=== PATIENT | female | born 1950 | race Caucasian/White ===

== ENCOUNTER → 2020-08-22 | Emergency (ER) | payer MEDICARE ==
[~2020-08-22] VITALS: Ht 162.6 cm; Wt 72.6 kg
[~2020-08-22] MED LIST: CYMBALTA60 MG PO; LAMOTRIGINE OD100 MG PO; NORCO 5-325 TA1 EACH PO; SYNTHROID75 MCG PO
--- OUTSIDE RECORDS SUMMARY | ~2020-08-22 | XMS | Encounter Summary ---
Demographics + + + | Address | [address] | | | [place] [address] | + + + | Home Phone | | + + + | Preferred Language | Unknown | + + + | Marital Status | Single | + + + | Pentecostal Affiliation | Unknown | + + + | Race | Unknown | + + + | Ethnic Group | Unknown | + + + Author + + + | Author | [facility] [place] | | | and [place] | + + + | Organization | [facility] | | | and [place] | + + + | Address | Unknown | + + + | Phone | Unavailable | + + + Support + + +---------+ + | Name | Relationship | Address | Phone | + + +---------+ + | Jie Babin | ECON | Unknown | | + + +---------+ + Care Team Providers + +------+ + | Care Biscuit Factory Worker Name | Role | Phone | + +------+ + PCP | Unavailable | + +------+ + Encounter Details +--------+ + + + + | Date | Type | Department | Care Team | Description | +--------+ + + + + | 01/29/ | Hospital | [facility] | | | | 1999 | Encounter | MED [facility] EM[facility] | | | | | | [place] [address] | | | | | | [place] | | | | | | [address] | | | | | | [phone] | | | +--------+ + + + + Social History + +-------+ +--------+------+ | Tobacco Use | Types | Packs/Day | Years | Date | | | | | Used | | + +-------+ +--------+------+ | Never Assessed | | | | | + +-------+ +--------+------+ + + + | Sex Assigned at | Date Recorded | | | | + + + | Not on file | | + + + documented as of this encounter Plan of Treatment Not on filedocumented as of this encounter Visit Diagnoses Not on filedocumented in this encounter"
--- OUTSIDE RECORDS SUMMARY | ~2020-08-22 | XMS | Clinical Summary ---
Demographics + + + | Address | [address] | | | [place] [address] | + + + | Home Phone | | + + + | Preferred Language | Unknown | + + + | Marital Status | Single | + + + | Orthodox Affiliation | Unknown | + + + | Race | Unknown | + + + | Ethnic Group | Unknown | + + + Author + + + | Author | [facility] [place] | | | and [place] | + + + | Organization | [facility] [place] | | | and [place] | [...] Team Providers + +------+ + | Care Film Historian Name | Role | Phone | + +------+ + | Michael Bronson | PCP | | + +------+ + Allergies Not on File Medications Not on file Active Problems Not on file Social History + +-------+ +--------+------+ | Tobacco [...] on file | | + + + Last Filed Vital Signs Not on file Plan of Treatment + + +-------+ + | Health Maintenance | Due Date | Last | Comments | | | | Done | | + + +-------+ + | Vaccine: | | | | | Dtap/Tdap/Td (1 - | 8 | | | | Tdap) | | | | + + +-------+ + | Vaccine: Zoster (1 | | | | | of 2) | 9 | | | + + +-------+ + | Breast Cancer | | | | | Screening | 4 | | | + + +-------+ + | Vaccine: | | | | | Pneumococcal 65+ (1 | 4 | | | | of 1 - PPSV23) | | | | + + +-------+ + | Vaccine: Influenza | | | | | (#1) | 0 | | | + + +-------+ + Results Not on filefrom Last 3 Months Insurance + +--------+ +--------+ +---------+--------+ | Payer | Benefi | Subscriber | Effect | Phone | Address | Type | | | t Plan | ID | shayna | | | | | | / | | Dates | | | | | | Group | | | | | | + +--------+ +--------+ +---------+--------+ | MEDICARE | MEDICA | [id number] | 03/18/20 | [phone] | | Medica | | | RE | | 14-Pre | 5 | | re | | | PART A | | sent | | | | | | AND B | | | | | | + +--------+ +--------+ +---------+--------+ + +--------+ +--------+ + + | Guarantor Name | Accoun | Relation to | Date | Phone | Billing Address | | | t Type | Patient | of | | | | | | | | | | + +--------+ +--------+ + + | Landy Pina | Person | Self | [birth year] | [address] | | | al/Fam | | 1950 | [phone] | [place] [address] | | | yamileth | | | 1 (Home) | | + +--------+ +--------+ + +"
--- OUTSIDE RECORDS SUMMARY | ~2020-08-22 | XMS | Encounter Summary ---
Demographics + + + | Address | [address] | | | [place] [address] | + + + | Home Phone | | + + + | Preferred Language | Unknown | + + + | Marital Status | Single | + + + | Voodoo Affiliation | Unknown | + + + | Race | Unknown | + + + | Ethnic Group | Unknown | + + + Author + + + | Author | [facility] [place] | | | and [place] | + + + | Organization | [facility] [place] | | | and [place] | [...] Team Providers + +------+ + | Care Work Manager Name | Role | Phone | + +------+ + PCP | Unavailable | + +------+ + Encounter Details +--------+ + + + + | Date | Type | Department | Care Team | Description | +--------+ + + + + | 01/28/ | [facility] | [facility] | | | | 1999 | Encounter | MED CTR GENERIC OP | | | | | | CONV DEPT [address] | | | | | | [address], | | | | | | [place] [address] | | | | | | [phone] | | | +--------+ + + + [...]
== END ==
LOC: ED 12:35
DX: S32.019A Unspecified fracture of first lumbar vertebra, initial encounter for closed fracture (principal); W01.10XA Fall on same level from slipping, tripping and stumbling with subsequent striking against unspecified object, initial encounter; F32.9 Major depressive disorder, single episode, unspecified; E03.9 Hypothyroidism, unspecified; Z87.891 Personal history of nicotine dependence; Z79.899 Other long term (current) drug therapy
CPT/HCPCS: 70450; 71045; 72070; 72080; 72128; 72131; 99284-25

== ENCOUNTER 2024-09-23 17:16 | Emergency (ER) | payer MEDICARE, OTHER ==
[~2024-09-23] VITALS: Ht 162.6 cm; Wt 76.8 kg
[~2024-09-23 17:16] MED LIST changes: +AUGMENTIN 500-1 EACH PO; +OXYCODONE HCL5 MG PO; +ZITHROMAX TRI-500 MG PO
[2024-09-23] MEDS ORDERED: QUETIAPINE FUM200 M1 PO (17:24)
[2024-09-23] MEDS ORDERED: CALQUENCE100 M1 PO (17:25)
[2024-09-23] MEDS ORDERED: SODIUM CHLORIDE 0.9% 500 ML IV ONE (18:15)
[2024-09-23 18:25] LABS: HEMATOCRIT 31.3 % (35.0-50.0); HEMOGLOBIN 10.3 g/dL (12.0-18.0); MCH 25.4 (27-36); MCHC 32.9 g/dl (30-36); MCV 77.4 fl (81-99); PLATELET COUNT 155 K/uL (140-440); RBC 4.05 M/ul (4.3-5.7); RDW 18.1 (10.5-15.0)
[2024-09-23 18:37] LABS: ANION GAP 11.4 (7-21); BUN/CREATININE RATIO 15.09 (6.0-28.6); CALCIUM 8.6 mg/dL (8.5-10.1); CREATININE, SERUM 1.59 mg/dL (0.55-1.02); POTASSIUM 4.4 mmol/L (3.5-5.1)
[2024-09-23 18:55] LABS: LYMPHOCYTES, MANUAL DIFF 86; NEUTROPHILS, MANUAL DIFF 14
[2024-09-23 19:15] VITALS: BP 116/63
--- NOTE | 2024-09-24 19:17 | EKG ---
[facility] [address] [place], [place] [address] Signed Normal sinus rhythm with sinus arrhythmia Normal ECG When compared with ECG of 23-APR-2024 09:50, No significant change was found Confirmed by Hailey Duarte MD ([id number]) on 09/24/2024 7:17:32 PM Electronically Signed By: HAILEY DUARTE MD 09/24/241916 PATIENT NAME: NESTOR BROUSSARD Electrocardiogram DATE OF : 48 PHYSICIAN: HAILEY DUARTE MD REPORT #: [id number] REPORT IS CONFIDENTIAL AND NOT TO BE RELEASED WITHOUT AUTHORIZATION
== END 2024-09-23 19:34 | disposition home or self-care (01) ==
LOC: ED 17:16
PROVIDERS: Emergency Medicine
DX: S00.81XA Abrasion of other part of head, initial encounter (principal); S00.31XA Abrasion of nose, initial encounter; W19.XXXA Unspecified fall, initial encounter; R55 Syncope and collapse; E03.9 Hypothyroidism, unspecified; D72.829 Elevated white blood cell count, unspecified; Z79.890 Hormone replacement therapy; Z79.899 Other long term (current) drug therapy
CPT/HCPCS: 36415; 70450; 80048; 85025; 93005; 93010; 96360; 99284-25; J7040

== ENCOUNTER 2024-11-13 09:34 | Emergency (ER) | payer MEDICARE, OTHER ==
[~2024-11-13] VITALS: Ht 162.6 cm; Wt 79.4 kg
[~2024-11-13 09:34] MED LIST changes: +CALQUENCE100 M1 PO; +QUETIAPINE FUM200 M1 PO
[2024-11-13] MEDS ORDERED: GEMTESA75 MG PO (11:06)
[2024-11-13 12:34] LABS: HEMATOCRIT 31.9 % (35.0-50.0); MCH 24.9 (27-36); MCHC 31.5 g/dl (30-36); PLATELET COUNT 175 K/uL (140-440); RBC 4.03 M/ul (4.3-5.7); RDW 18.5 (10.5-15.0)
[2024-11-13 12:47] LABS: INR 0.98 (0.80-1.30); PROTIME 12.6 Sec (11.2-14.2)
[2024-11-13 12:50] LABS: PARTIAL THROMBOPLASTIN TIME 26.8 Sec (22.9-41.3)
[2024-11-13 12:51] LABS: EOSINOPHILS, MANUAL DIFF 1; LYMPHOCYTES, MANUAL DIFF 80; MONOCYTES, MANUAL DIFF 1; NEUTROPHILS, MANUAL DIFF 18
[2024-11-13 12:52] LABS: ALBUMIN 3.4 g/dL (3.4-5.0); ALBUMIN/GLOBULIN RATIO 1.17 (1.1-2.4); ANION GAP 15.6 (7-21); BILIRUBIN, TOTAL 0.4 ng/dL (0.2-1.0); BUN/CREATININE RATIO 14.7 (6.0-28.6); CALCIUM 8.8 mg/dL (8.5-10.1); CREATININE, SERUM 1.36 mg/dL (0.55-1.02); POTASSIUM 4.6 mmol/L (3.5-5.1); PROTEIN, TOTAL 6.3 g/dL (6.4-8.2)
[2024-11-13 13:48] VITALS: BP 124/60
== END 2024-11-13 13:40 | disposition home or self-care (01) ==
LOC: ED 09:34
PROVIDERS: Emergency Medicine
DX: S70.12XA Contusion of left thigh, initial encounter (principal); X58.XXXA Exposure to other specified factors, initial encounter; F32.A Depression, unspecified; Z79.899 Other long term (current) drug therapy; Z87.891 Personal history of nicotine dependence
CPT/HCPCS: 36415; 80053; 85025; 85610; 85730; 99283

== ENCOUNTER 2024-12-07 09:23 | Emergency (ER) | payer MEDICARE, OTHER ==
[~2024-12-07] VITALS: Ht 162.6 cm; Wt 80.7 kg
[~2024-12-07 09:23] MED LIST changes: +GEMTESA75 MG PO
--- OUTSIDE RECORDS SUMMARY | 2024-12-07 09:30 | XMS ---
PreManage Notification: NESTOR BROUSSARD Security Portable Sawyer Events No recent Security Events currently on file CRITERIA MET - [facility] - 2 Visits in 30 Days CARE PROVIDERS [facility] Current PHONE: Unknown [facility] has no Care Guidelines for this patient. EDolores VISIT COUNT (12 MO.) 5 [facility] TOTAL 5 NOTE: Visits indicate total known visits. ED/UCC VISIT TRACKING (12 MO.) 12/07/2024 09:23 [facility] TYPE: Emergency COMPLAINT: - FALL 11/13/2024 09:35 [facility] TYPE: Emergency COMPLAINT: - LT LEG INJURY DIAGNOSES: - Contusion of left thigh, initial encounter - Depression, unspecified - Exposure to other specified factors, initial encounter - Other termite technician (current) drug therapy - Personal history of nicotine dependence 09/23/2024 17:17 [facility] TYPE: Emergency COMPLAINT: - FALL DIAGNOSES: - Abrasion of nose, initial encounter - Abrasion of other part of head, initial encounter - Elevated white blood cell count, unspecified - Headache, unspecified - Hormone replacement therapy - Hypothyroidism, unspecified - Other termite technician (current) drug therapy - Syncope and collapse - Unspecified fall, initial encounter 02/28/2024 07:33 [facility] TYPE: Emergency COMPLAINT: - FALL, R ARM/HEAD INJURY DIAGNOSES: - Depression, unspecified - Fall on same level from slipping, tripping and stumbling without subsequent striking against object, initial encounter - Hormone replacement therapy - Hypothyroidism, unspecified - Other intraarticular fracture of lower end of right radius, initial encounter for closed fracture - Other termite technician (current) drug therapy - Pain in right forearm - Personal history of nicotine dependence 01/23/2024 12:32 [facility] TYPE: Emergency COMPLAINT: - COLD/FLU SYMPTOMS, COUGH, FEVER DIAGNOSES: - Cough, unspecified - Hypothyroidism, unspecified - Influenza due to other identified influenza virus with other respiratory manifestations - Other fci (current) drug therapy - Personal history of nicotine dependence - Pneumonia, unspecified organism INPATIENT VISIT TRACKING (12 MO.) No inpatient visits to display in this time frame [email or web address]
[2024-12-07] MEDS ORDERED: TOLTERODINE TART4 MG PO (09:36)
[2024-12-07] MEDS ORDERED: METOPROLOL SUCC25 MG PO (09:37)
[2024-12-07] MEDS ORDERED: CLONAZEPAM0.5 MG PO (09:37)
[2024-12-07] MEDS ORDERED: HYDROCODONE/ACETA 5/325 TAB PO ONE (10:00)
[2024-12-07] MEDS ORDERED: HYDROCODON-ACE1 EA10 PO (10:56)
[2024-12-07 11:06] VITALS: BP 128/68
== END 2024-12-07 11:04 | disposition home or self-care (01) ==
LOC: ED 09:23
DX: S20.219A Contusion of unspecified front wall of thorax, initial encounter (principal); E03.9 Hypothyroidism, unspecified; W01.0XXA Fall on same level from slipping, tripping and stumbling without subsequent striking against object, initial encounter; Z79.899 Other long term (current) drug therapy; Z87.891 Personal history of nicotine dependence
CPT/HCPCS: 71046; 99283-25

== ENCOUNTER 2025-01-14 09:59 | Emergency (ER) | payer MEDICARE, OTHER ==
[~2025-01-14] VITALS: Ht 162.6 cm; Wt 80.7 kg
[~2025-01-14 09:59] MED LIST changes: +CLONAZEPAM0.5 MG PO; +HYDROCODON-ACE1 EA10 PO; +METOPROLOL SUCC25 MG PO; +TOLTERODINE TART4 MG PO
[2025-01-14] MEDS ORDERED: OMEPRAZOLE40 MG PO (10:16)
[2025-01-14] MEDS ORDERED: HYDROCODON-ACE1 EA10 PO (11:56)
[2025-01-14 12:15] VITALS: BP 109/52
== END 2025-01-14 12:15 | disposition home or self-care (01) ==
LOC: ED 09:59
DX: S32.592A Other specified fracture of left pubis, initial encounter for closed fracture (principal); S22.20XA Unspecified fracture of sternum, initial encounter for closed fracture; E03.9 Hypothyroidism, unspecified; Z87.891 Personal history of nicotine dependence; Z79.890 Hormone replacement therapy; Z79.899 Other long term (current) drug therapy; W18.30XA Fall on same level, unspecified, initial encounter
CPT/HCPCS: 71046; 73502; 99284-25

== ENCOUNTER 2025-04-27 09:01 | Emergency (ER) | payer MEDICARE, OTHER ==
[~2025-04-27] VITALS: Ht 162.6 cm; Wt 82.0 kg
[~2025-04-27 09:01] MED LIST changes: +OMEPRAZOLE40 MG PO
[2025-04-27 10:05] LABS: HEMATOCRIT 32.8 % (34.1-44.9); MCH 24.6 PG (25.6-32.2); MCHC 30.5 g/dL (32.2-35.5); MCV 80.6 fL (79.4-94.8); PLATELET COUNT 209 K/uL (182-369); RBC 4.07 M/uL (3.93-5.22)
[2025-04-27 10:21] LABS: ALBUMIN 3.5 g/dL (3.4-5.0); ALBUMIN/GLOBULIN RATIO 1.25 (1.1-2.4); ANION GAP 10.5 (7-21); BILIRUBIN, TOTAL 0.3 mg/dL (0.2-1.0); BUN/CREATININE RATIO 13.53 (6.0-28.6); CALCIUM 9.1 mg/dL (8.5-10.1); CREATININE, SERUM 1.33 mg/dL (0.55-1.02); POTASSIUM 4.5 mmol/L (3.5-5.1); PROTEIN, TOTAL 6.3 g/dL (6.4-8.2)
[2025-04-27 10:26] LABS: EOSINOPHILS, MANUAL DIFF 9; LYMPHOCYTES, MANUAL DIFF 68; MONOCYTES, MANUAL DIFF 5; NEUTROPHILS, MANUAL DIFF 18
[2025-04-27 11:09] LABS: ERYTHROCYTE SEDIMENTATION RATE 8
[2025-04-27] MEDS ORDERED: HYDROCODONE/APAP 10/325 1 TAB PO ONE (11:15)
[2025-04-27] MEDS ORDERED: BACTRIM DS TAB1 EACH PO (11:49)
[2025-04-27] MEDS ORDERED: CEPHALEXIN500 M1 PO (11:49)
[2025-04-27 12:05] VITALS: BP 122/79
== END 2025-04-27 12:06 | disposition home or self-care (01) ==
LOC: ED 09:01
PROVIDERS: Emergency Medicine
DX: L03.113 Cellulitis of right upper limb (principal); Z87.891 Personal history of nicotine dependence; Z79.899 Other long term (current) drug therapy
CPT/HCPCS: 36415; 80053; 85025; 85651; 86140; 99284-25; A9270; Q9967

== ENCOUNTER 2025-07-07 05:54 | Day surgery (SDC) | payer MEDICARE, OTHER ==
[~2025-07-07] VITALS: Ht 162.6 cm; Wt 79.0 kg
[~2025-07-07 05:54] MED LIST changes: +BACTRIM DS TAB1 EACH PO; +CEPHALEXIN500 M1 PO; +DRIZALMA SPRINK60 MG PO; +IRON325 M1 PO; +LACTATED RINGER'S 1,000 ML IV SCH
[2025-07-07 06:11] VITALS: BP 108/54
[2025-07-07] MEDS ORDERED: IBLOOD GLUCOSE TEST STRIP 1 EA TEST VI PRN (07:00)
[2025-07-07] MEDS ORDERED: LIDOCAINE HCL 1% 5 ML SDV INJ ONE (07:00)
[2025-07-07] MEDS ORDERED: LIDOCAINE HCL 2% 5 ML SDV ONE (07:14)
--- NOTE | 2025-07-07 07:25 | NUR ---
VISITED DURING SPIRITUAL CARE ROUNDS. PT IN OVERALL GOOD SPIRITS, SUPPORTED BY RUG BACKING STENCILER IN ROOM, NO IMMEDIATE NEEDS. LENDING CONSULTANT PROVIDED SUPPORTIVE PRESENCE, HOSPITALITY, PRAYER, FACILITATED INTERACTION WITH THERAPY ANIMAL. PT AND RUG BACKING STENCILER EXPRESSED GRATITUDE.
--- NOTE | 2025-07-07 08:08 | NUR ---
07/07/25 0808 Faviola Rivas 0800- PT PRESENTS TO PACU, LEFT LATERAL POSITION, NON REACTIVE TO STIMULUS. BREATHING EVEN AND NON LABORED ON ROOM AIR, LR INFUSING TO RH IV. ABD SOFT, NON DISTENDED. ALL MONITORS IN PLACE.
[2025-07-07 09:15] VITALS: BP 113/60
--- NOTE | 2025-07-12 06:05 | PATH ---
[facility] [address] [place], [place] [address] Signed SPECIMEN(S): A ANTRUM BIOPSY SPECIMEN SOURCE: A. ANTRUM BIOPSY CLINICAL HISTORY: Anemia small hiatal hernia/incomplete colon Prep FINAL PATHOLOGIC DIAGNOSIS: A. Antrum, biopsy: - Mild chronic inactive gastritis. - Negative for intestinal metaplasia and dysplasia. - Negative for Helicobacter pylori organisms on routine stain. DDF MICROSCOPIC EXAMINATION: Histologic sections of all submitted blocks are examined by light microscopy. These findings, together with the gross examination, support the pathologic diagnosis. GROSS DESCRIPTION: The specimen, labeled and designated "Silvana, Kobe, 1." and designated on the requisition "antrum/pylorus biopsy," is received in formalin and consists of two bello soft tissue fragments that measure 0.3 and 0.4 cm in greatest dimension. The specimen is entirely submitted in (A1). FB (under the direct supervision of a pathologist) The Gross Description was prepared using a voice recognition system. The report was reviewed for accuracy; however, sound-alike word errors, addition and/or deletions may occur. If there is any question about this report, please contact Client Services. ADDITIONAL NOTES: Immunohistochemical and/or in situ hybridization studies if performed in this case included appropriate positive controls that reacted as expected. This test was developed and its performance characteristics determined by [facility]. It has not been cleared or approved by the U.S. Food and Drug Administration. The FDA has determined that such clearance or approval is not necessary. This test is used for clinical purposes. It should not be regarded as investigational or for research. [facility] is certified under the PATIENT NAME: NESTOR BROUSSARD PATHOLOGY DATE OF : 48 REPORT #: [id number] PHYSICIAN: GEORGE PATHOLOGY PCP: ALFIE DE DIOS MD REPORT IS CONFIDENTIAL AND NOT TO BE RELEASED WITHOUT AUTHORIZATION [facility] [address] [place] [address] Signed Clinical Laboratory Improvement Amendments of 1988 (CLIA) as qualified to perform high complexity clinical laboratory testing. PERFORMING LABORATORY: Technical component was performed by [facility], [address] [place] [address] (CLIA# [id number]). Professional interpretation was performed by [facility] - [address] [address] [id number] Diagnostician: Zain Hoang DO Pathologist Electronically Signed 07/09/2025 Copies: ~ PATIENT NAME: NESTOR BROUSSARD PATHOLOGY DATE OF : 48 REPORT #: [id number] PHYSICIAN: GEORGE PATHOLOGY PCP: ALFIE DE DIOS MD REPORT IS CONFIDENTIAL AND NOT TO BE RELEASED WITHOUT AUTHORIZATION
== END 2025-07-07 08:55 | disposition home or self-care (01) ==
LOC: DS 05:54
PROVIDERS: ATTEND Surgery
PROC: 0DB78ZX Excision of Stomach, Pylorus, Via Natural or Artificial Opening Endoscopic, Diagnostic (ICD-10-PCS; principal; 2025-07-07 07:30)
PROC: 0DJD8ZZ Inspection of Lower Intestinal Tract, Via Natural or Artificial Opening Endoscopic (ICD-10-PCS; 2025-07-07 07:30)
DX: D64.9 Anemia, unspecified (principal); K29.50 Unspecified chronic gastritis without bleeding; K44.9 Diaphragmatic hernia without obstruction or gangrene; I10 Essential (primary) hypertension; E78.5 Hyperlipidemia, unspecified; E03.9 Hypothyroidism, unspecified; F51.04 Psychophysiologic insomnia; E66.9 Obesity, unspecified; Z68.30 Body mass index [BMI] 30.0-30.9, adult; Z53.8 Procedure and treatment not carried out for other reasons; Z87.891 Personal history of nicotine dependence; Z79.890 Hormone replacement therapy; Z79.899 Other long term (current) drug therapy; Z88.8 Allergy status to other drugs, medicaments and biological substances
CPT/HCPCS: 00813; 88305; J2003; J2704; J7121

== ENCOUNTER 2025-08-26 09:58 | Day surgery (SDC) | payer MEDICARE, OTHER ==
[~2025-08-26] VITALS: Ht 162.6 cm; Wt 79.0 kg
[~2025-08-26 09:58] MED LIST changes: +CARAFATE1 GM PO; +IBLOOD GLUCOSE TEST STRIP 1 EA TEST VI PRN; +LIDOCAINE HCL 1% 5 ML SDV INJ ONE; +LIDOCAINE HCL 2% 5 ML SDV ONE; +MYSOLINE50 MG PO
[2025-08-26 10:09] VITALS: BP 127/60
[2025-08-26] MEDS ORDERED: GLUCAGON,HUMAN RECOMBINANT 1 MG/ML VIAL ONE (11:07)
[2025-08-26] MEDS ORDERED: FAMOTIDINE 20 MG/ 2 ML VIAL ONE (11:40)
--- NOTE | 2025-08-26 12:12 | NUR ---
08/26/25 1212 Alexus King 1152 PT ARRIVED TO PACU ON 2L NC. PT ASLEEP AND RESP EVEN AND UNLABORED. 1200 PT WAKES TO VERBAL STIMULI AND O2 REMOVED. 1210 HOB INCREASED AND PT DENEIS CONCERNS.
[2025-08-26 12:46] VITALS: BP 112/69
== END 2025-08-26 12:52 | disposition home or self-care (01) ==
LOC: DS 09:58
PROVIDERS: ATTEND Surgery
PROC: 0DJD8ZZ Inspection of Lower Intestinal Tract, Via Natural or Artificial Opening Endoscopic (ICD-10-PCS; principal; 2025-08-26 11:00)
DX: D64.9 Anemia, unspecified (principal); K57.30 Diverticulosis of large intestine without perforation or abscess without bleeding; I10 Essential (primary) hypertension; E78.5 Hyperlipidemia, unspecified; E03.9 Hypothyroidism, unspecified; Z79.899 Other long term (current) drug therapy; Z79.890 Hormone replacement therapy; Z88.8 Allergy status to other drugs, medicaments and biological substances
CPT/HCPCS: 00811; 85025; J1610; J2003; J2704; J7121

== ENCOUNTER 2025-09-28 07:59 | Emergency (ER) | payer MEDICARE, OTHER ==
[~2025-09-28] VITALS: Ht 162.6 cm; Wt 79.0 kg
--- OUTSIDE RECORDS SUMMARY | ~2025-09-28 | XMS | Continuity of Care Document ---
Demographics + + + | Address | [address] | | | [place] [address] | + + + | Preferred Language | Unknown | + + + | Marital Status | Never | + + + | Quaker Affiliation | Unknown | + + + | Race | White | + + + | Ethnic Group | Not or | + + + Author + + + | Author | [facility] | + + + | Organization | [facility] | + + + | Address | [address] | | | [place] [address] | + + + | Phone | | + + + Care Team Providers + + + + | Care Manager Wind Name | Role | Phone | + + + + Unavailable | Unavailable | + + + + Unavailable | Unavailable | + + + + Allergies and Intolerances + + + + + + | date | description | facility | reaction | severity | + + + + + + | 2025-07-07 | Propranolol | [facility] - | (no reaction) | (no severity) | | 00:00 | | [facility] | | | + + + + + + | 2025-07-07 | Propranolol | [facility] - | (no reaction) | (no severity) | | 00:00 | | [facility] | [facility] | | | + + + + + + | 2025-07-07 | Propranolol | [facility] - | (no reaction) | (no severity) | | 00:00 | | [facility] | | | | | | [facility] | | | + + + + + + Encounters No information. Functional Status No information. Immunizations No information. Medications + + + + | date | description | facility | + + + + | (no date) | LAMOTRIGINE | [facility] | | | | [facility] | + + + + | (no date) | clonAZEpam | [facility] | | | | [facility] | + + + + | (no date) | OMEPRAZOLE | [facility] | | | | [facility] | + + + + | (no date) | PRIMIDONE | [facility] | | | | [facility] | + + + + | (no date) | SUCRALFATE | [facility] | | | | [facility] | + + + + | (no date) | Duloxetine HCl | [facility] | | | | [facility] | + + + + | (no date) | Acalabrutinib Maleate | [facility] | | | | [facility] | + + + + | (no date) | FERROUS SULFATE | [facility] | | | | [facility] | + + + + | (no date) | DULOXETINE HCL | [facility] | | | | [facility] | + + + + | (no date) | Quetiapine Fumarate | [facility] | | | | [facility] | + + + + | (no date) | TOLTERODINE TARTRATE | [facility] | | | | [facility] | + + + + | (no date) | METOPROLOL SUCCINATE | [facility] | | | | [facility] | + + + + | (no date) | LEVOTHYROXINE SODIUM | [facility] | | | | [facility] | + + + + Problems No information. Procedures No information. Results/Labs No information. Social History +--------+ + + | date | description | facility | +--------+ + + Vital Signs + + + +---------+ | date | measurement | value | units | + + + +---------+ | 2025-07-07 00:00 | BP_diastolic | 59 | mmHg | + + + +---------+ | 2025-07-07 00:00 | BP_systolic | 117 | mmHg | + + + +---------+ | 2025-07-07 00:00 | heart_rate | 64 | /min | + + + +---------+ | 2025-07-07 00:00 | o2_saturation | 95 | % | + + + +---------+ | 2025-07-07 00:00 | respiration_rate | 19 | /min | + + + +---------+ | 2025-07-07 00:00 | | 97 | F | | | temperature_standar | | | | | d | | | + + + +---------+ | 2025-08-17 00:00 | BMI | 29.9 | kg/m2 | + + + +---------+ | 2025-08-17 00:00 | height_metric | 162.56 | cm | + + + +---------+ | 2025-08-17 00:00 | height_standard | 64 | in | + + + +---------+ | 2025-08-17 00:00 | weight_metric | 78.999 | kg | + + + +---------+ | 2025-08-17 00:00 | weight_standard | 174.162 | lb | + + + +---------+ | 2025-08-26 00:00 | BP_diastolic | 69 | mmHg | + + + +---------+ | 2025-08-26 00:00 | BP_systolic | 112 | mmHg | + + + +---------+ | 2025-08-26 00:00 | heart_rate | 72 | /min | + + + +---------+ | 2025-08-26 00:00 | o2_saturation | 95 | % | + + + +---------+ | 2025-08-26 00:00 | respiration_rate | 16 | /min | + + + +---------+ | 2025-08-26 00:00 | | 97.3 | F | | | temperature_standar | | | | | d | | | + + + +---------+"
[~2025-09-28 07:59] MED LIST changes: -IBLOOD GLUCOSE TEST STRIP 1 EA TEST VI PRN; -LACTATED RINGER'S 1,000 ML IV SCH; -LIDOCAINE HCL 1% 5 ML SDV INJ ONE; -LIDOCAINE HCL 2% 5 ML SDV ONE
[2025-09-28] MEDS ORDERED: OXYCODONE/APAP 5/325 TAB PO ONE (08:45)
[2025-09-28] MEDS ORDERED: ONDANSETRON 4 MG TAB ODT SL ONE (08:45)
[2025-09-28] MEDS ORDERED: PERCOCET 5-3251 EACH PO (09:17)
[2025-09-28] MEDS ORDERED: ONDANSETRON ODT4 MG PO (09:17)
[2025-09-28 09:33] VITALS: BP 103/48
== END 2025-09-28 09:34 | disposition home or self-care (01) ==
LOC: ED 07:59
DX: S52.502A Unspecified fracture of the lower end of left radius, initial encounter for closed fracture (principal); X50.0XXA Overexertion from strenuous movement or load, initial encounter; Z88.8 Allergy status to other drugs, medicaments and biological substances; Z87.891 Personal history of nicotine dependence
CPT/HCPCS: 73110; 73130; 99283; A9270